=== PATIENT | male | born 1940 | race Hispanic/Latino ===

== ENCOUNTER 2020-06-26 07:47 | Observation (INO) | payer OTHER ==
[2020-06-24 12:44] LABS: BASOPHILS % (AUTO) 1.1 % (0.0-5.0); EOSINOPHILS % (AUTO) 3.4 % (0.0-8.0); HEMATOCRIT 41.8 % (42-54); LYMPHOCYTES % (AUTO) 31.2 % (21.0-51.0); MEAN CORPUSCULAR HEMOGLOBIN 31.1 pg (27.0-33.0); MEAN CORPUSCULAR HGB CONC 33.7 g/dL (32.0-36.0); MEAN CORPUSCULAR VOLUME 92.1 fL (79-99); MONOCYTES % (AUTO) 7.5 % (3.0-13.0); NEUTROPHILS % (AUTO) 56.5 % (40.0-77.0); PLATELET COUNT (AUTO) 188 K/uL (130-400); RED BLOOD CELL COUNT(AUTO) 4.54 MIL/uL (4.50-6.20); RED CELL DISTRIBUTION WIDTH 12.9 % (11.0-15.5); WHITE BLOOD COUNT (AUTO) 7.6 K/uL (4.8-10.8)
[2020-06-24 12:45] LABS: APPEARANCE,URINE SL CLOUDY (CLEAR); BILIRUBIN,URINE NEGATIVE (NEGATIVE); COLOR,URINE YELLOW (YELLOW); GLUCOSE, URINE (UA) NEGATIVE (NEGATIVE); KETONES,URINE NEGATIVE (NEGATIVE); LEUKOCYTE ESTERASE ,URINE SMALL (NEGATIVE); NITRATE,URINE POSITIVE (NEGATIVE); OCCULT BLOOD,URINE TRACE-INTACT (NEGATIVE); PROTEIN,URINE 30 mg/dL (NEGATIVE); UROBILINOGEN,URINE 0.2 mg/dL (0.2-1.0)
[2020-06-24 12:53] LABS: POTASSIUM 4.5 mmol/L (3.5-5.1)
[2020-06-24 12:55] LABS: INR 1.1 (0.85-1.15); PROTHROMBIN TIME 11.9 SEC (9.6-11.6)
[2020-06-24 12:57] LABS: PARTIAL THROMBOPLASTIN TIME 26.3 SEC (26.3-35.5)
[2020-06-24 13:15] LABS: RBC,URINE 0-1 /HPF (0-1)
[2020-06-24 13:16] LABS: BACTERIA,URINE Moderate /HPF (None Seen); SQUAMOUS EPITHELIAL CELL,UR 0-2 /HPF (0-2); WBC,URINE 26-50 /HPF (0-1)
[2020-06-25 16:26] VITALS: BP 114/61
[2020-06-26] VITALS (9 sets, daily range): BP systolic 108–143; BP diastolic 52–84
[~2020-06-26] VITALS: Ht 170.2 cm; Wt 82.3 kg
[~2020-06-26 07:47] MED LIST: AMLO-257 PO; ASPI-1197 PO; ATOR40TA69 PO; CARV25TA PO; ISOS20TA85 PO; LISI40TA9 PO; MULT-1203 PO; SODIUM CHLORIDE 0.9% 500ML 500 ML IV SCH; TAMS-1 PO
[2020-06-26] MEDS ORDERED: SODIUM CHLORIDE 0.9% 1000ML 1,000 ML IV ONE (08:38)
[2020-06-26] MEDS ORDERED: IOHEXOL-350 50ML VIAL IV ONE (15:53)
[2020-06-26] MEDS ORDERED: IOHEXOL-350 75 ML VIAL IV ONE (15:53)
[2020-06-26] MEDS ORDERED: IOHEXOL 350 MG/ML 100ML INFUS..BTL IV ONE (15:53)
[2020-06-26] MEDS ORDERED: BIVALIRUDIN 250 MG/VIAL IV ONE (15:53)
[2020-06-26] MEDS ORDERED: HEPARIN SODIUM 1000UNIT/ML 10ML VIAL ONE (15:53)
[2020-06-26] MEDS ORDERED: NITROGLYCERIN 2 MG/VIAL VIAL IV ONE (15:53)
[2020-06-26] MEDS ORDERED: LIDOCAINE HCL 2% 20ML ONE (15:54)
[2020-06-26] MEDS ORDERED: CLOPIDOGREL BISULFATE 300 MG TAB ONE (17:47)
[2020-06-26] MEDS ORDERED: LABETALOL 20 MG/4 ML DISP.SYRIN IV ONE (18:11)
[2020-06-26] MEDS ORDERED: FENTANYL CITRATE PF 50 MCG/1 ML 2ML VIAL ONE (18:13)
[2020-06-26] MEDS ORDERED: SODIUM CHLORIDE 0.9% 1000ML 1,000 ML IV SCH (18:30)
[2020-06-26] MEDS ORDERED: ONDANSETRON HCL 4 MG/2 ML VIAL IVP PRN (18:30)
[2020-06-26] MEDS ORDERED: ATORVASTATIN CALCIUM 40 MG TABLET PO SCH (21:00)
[2020-06-26] MEDS: CARVEDILOL 25 MG TABLET PO SCH (21:42)
[2020-06-27 04:02] VITALS: BP 137/75
[2020-06-27 04:58] LABS: MEAN CORPUSCULAR HEMOGLOBIN 30.9 pg (27.0-33.0); MEAN CORPUSCULAR HGB CONC 34.4 g/dL (32.0-36.0); MEAN CORPUSCULAR VOLUME 90.1 fL (79-99); RED BLOOD CELL COUNT(AUTO) 4.33 MIL/uL (4.50-6.20); RED CELL DISTRIBUTION WIDTH 12.6 % (11.0-15.5); WHITE BLOOD COUNT (AUTO) 7.6 K/uL (4.8-10.8)
[2020-06-27 05:14] LABS: CREATININE 0.9 mg/dL (0.5-1.5); POTASSIUM 3.5 mmol/L (3.5-5.1)
[2020-06-27 08:00] VITALS: BP 143/73
[2020-06-27] MEDS ORDERED: CLOP75TA14 PO (08:37)
[2020-06-27] MEDS ORDERED: TAMSULOSIN HCL 0.4 MG CAP.ER.24H PO SCH (09:00)
[2020-06-27] MEDS ORDERED: LISINOPRIL 40 MG TABLET PO SCH (09:00)
[2020-06-27] MEDS ORDERED: AMLODIPINE BESYLATE 5 MG TAB PO SCH (09:00)
[2020-06-27] MEDS ORDERED: CLOPIDOGREL BISULFATE 75 MG TAB PO SCH (09:00)
[2020-06-27] MEDS ORDERED: ASPIRIN 81MG TAB.CHEW PO SCH (09:00)
[2020-06-27] MEDS ORDERED: NON-FORMULARY MEDICATION 1 EACH (Multivitamin (Multi Vitamin Daily) 1 EACH) PO SCH (09:00)
[2020-06-27] MEDS ORDERED: ISOSORBIDE MONONITRATE 20 MG TABLET PO SCH (09:00)
[2020-06-27] MEDS ORDERED: MULTIVITAMIN TABLET PO SCH (09:00)
[2020-06-27] MEDS ORDERED: NITR100C4 PO (09:25)
[2020-06-27] MEDS: CARVEDILOL 25 MG TABLET PO SCH (09:28)
[2020-06-27 11:43] VITALS: BP 108/55
== END 2020-06-27 13:50 | disposition home or self-care (01) ==
LOC: DAH 07:47 → DAHIP 18:21 → DAH 18:21 → 4CH 19:17
PROVIDERS: ADMIT Internal Medicine Cardiovascular Disease; ATTEND Internal Medicine Cardiovascular Disease
DX: I25.5 Ischemic cardiomyopathy (principal); R94.39 Abnormal result of other cardiovascular function study; I25.119 Atherosclerotic heart disease of native coronary artery with unspecified angina pectoris; I10 Essential (primary) hypertension; N39.0 Urinary tract infection, site not specified; B96.20 Unspecified Escherichia coli [E. coli] as the cause of diseases classified elsewhere; E78.5 Hyperlipidemia, unspecified; N40.0 Benign prostatic hyperplasia without lower urinary tract symptoms; Z87.440 Personal history of urinary (tract) infections; Z95.5 Presence of coronary angioplasty implant and graft; Z16.23 Resistance to quinolones and fluoroquinolones; Z79.82 Long term (current) use of aspirin; Z79.02 Long term (current) use of antithrombotics/antiplatelets; Z79.899 Other long term (current) drug therapy
CPT/HCPCS: 36415 ×2; 71045; 80048 ×2; 80061; 81001; 85025; 85027; 85610; 85730; 87077; 87088; 87186; 93005; 93459; 96360; 96361 ×2; A4215; A4216; A4221; A4222; A4223 ×3; A4606; A4663; C1760; C1874; C1884; C1887; C1894 ×2; C9604; G0378 ×20; J0583; J1644; J3010; J3490 ×2; J7030; Q9965; Q9967 ×3

== ENCOUNTER 2020-06-29 11:24 | Inpatient (IN) | payer OTHER ==
[~2020-06-29] VITALS: Ht 170.2 cm; Wt 82.1 kg
[~2020-06-29 11:24] MED LIST changes: +CLOP75TA14 PO; +NITR100C4 PO; -SODIUM CHLORIDE 0.9% 500ML 500 ML IV SCH
[2020-06-29 11:56] LABS: BASOPHILS % (AUTO) 0.7 % (0.0-5.0); EOSINOPHILS % (AUTO) 2.6 % (0.0-8.0); HEMATOCRIT 39.7 % (42-54); LYMPHOCYTES % (AUTO) 26.6 % (21.0-51.0); MEAN CORPUSCULAR HGB CONC 34.3 g/dL (32.0-36.0); MEAN CORPUSCULAR VOLUME 90.4 fL (79-99); MONOCYTES % (AUTO) 10.7 % (3.0-13.0); NEUTROPHILS % (AUTO) 59.2 % (40.0-77.0); PLATELET COUNT (AUTO) 174 K/uL (130-400); RED BLOOD CELL COUNT(AUTO) 4.39 MIL/uL (4.50-6.20); RED CELL DISTRIBUTION WIDTH 12.9 % (11.0-15.5); WHITE BLOOD COUNT (AUTO) 6.1 K/uL (4.8-10.8)
[2020-06-29 12:05] LABS: INR 1.08 (0.85-1.15); PROTHROMBIN TIME 11.7 SEC (9.6-11.6)
[2020-06-29 12:06] LABS: CREATININE 1.1 mg/dL (0.5-1.5); PARTIAL THROMBOPLASTIN TIME 25.3 SEC (26.3-35.5); POTASSIUM 3.8 mmol/L (3.5-5.1)
[2020-06-29 12:10] LABS: ALBUMIN 3.8 g/dL (3.5-5.0); BILIRUBIN,TOTAL 0.8 mg/dL (0.2-1.0); TOTAL PROTEIN, SERUM 7.9 g/dL (6.0-8.3)
[2020-06-29] MEDS ORDERED: ASPIRIN 325 MG TABLET ONE (12:37)
[2020-06-29] MEDS ORDERED: ONDANSETRON HCL 4 MG/2 ML VIAL IV PRN (13:15)
[2020-06-29] MEDS: CEFTRIAXONE SODIUM 1 GM IV SCH (13:15)
[2020-06-29] MEDS ORDERED: ACETAMINOPHEN 325 MG TAB PO PRN ×2 (13:15)
[2020-06-29 13:25] LABS: APPEARANCE,URINE Cloudy (CLEAR); BILIRUBIN,URINE Small (NEGATIVE); COLOR,URINE Dark Yellow (YELLOW); GLUCOSE, URINE (UA) Negative (NEGATIVE); KETONES,URINE 15 mg/dL (NEGATIVE); LEUKOCYTE ESTERASE ,URINE Moderate (NEGATIVE); NITRATE,URINE Negative (NEGATIVE); OCCULT BLOOD,URINE Negative (NEGATIVE); PH,URINE 5.5 (5.0-8.0); PROTEIN,URINE POS 1+ mg/dL (NEGATIVE)
[2020-06-29 13:45] LABS: BACTERIA,URINE Few /HPF (None Seen); SQUAMOUS EPITHELIAL CELL,UR Few /HPF (0-2)
[2020-06-29 13:47] LABS: CALCIUM OXALATE CRYSTALS,UR Moderate /LPF (None Seen)
[2020-06-29 13:48] LABS: MUCUS,URINE Few LPF (None Seen); WBC,URINE 26-50 /HPF (0-1)
[2020-06-29] MEDS ORDERED: CEFTRIAXONE SODIUM 1 GM ONE (14:08)
[2020-06-29 19:00] VITALS: BP 117/52
[2020-06-29 20:25] VITALS: BP_SYST 109; BP_SYST 119; BP_DIAS 54; BP_DIAS 60
[2020-06-29 20:26] VITALS: BP 127/65
[2020-06-29] MEDS: ATORVASTATIN CALCIUM 10 MG TABLET PO SCH (21:14)
[2020-06-29] MEDS: FAMOTIDINE/PF 20 MG/2 ML VIAL IV SCH (21:15)
[2020-06-29] MEDS: CARVEDILOL 12.5 MG TABLET PO SCH (21:15)
[2020-06-29 23:51] VITALS: BP_SYST 113; BP_SYST 95; BP_DIAS 55; BP_DIAS 58
[2020-06-29 23:52] VITALS: BP 102/55
[2020-06-30] VITALS (7 sets, daily range): BP systolic 83–171; BP diastolic 43–70
[2020-06-30 05:52] LABS: BASOPHILS % (AUTO) 0.9 % (0.0-5.0); EOSINOPHILS % (AUTO) 5.2 % (0.0-8.0); LYMPHOCYTES % (AUTO) 31.6 % (21.0-51.0); MEAN CORPUSCULAR HEMOGLOBIN 30.2 pg (27.0-33.0); MEAN CORPUSCULAR HGB CONC 32.6 g/dL (32.0-36.0); MEAN CORPUSCULAR VOLUME 92.5 fL (79-99); MONOCYTES % (AUTO) 13.7 % (3.0-13.0); NEUTROPHILS % (AUTO) 48.4 % (40.0-77.0); PLATELET COUNT (AUTO) 158 K/uL (130-400); RED BLOOD CELL COUNT(AUTO) 4.11 MIL/uL (4.50-6.20); RED CELL DISTRIBUTION WIDTH 12.9 % (11.0-15.5); WHITE BLOOD COUNT (AUTO) 5.6 K/uL (4.8-10.8)
[2020-06-30 06:04] LABS: ALBUMIN 3.1 g/dL (3.5-5.0); BILIRUBIN,TOTAL 0.7 mg/dL (0.2-1.0); CREATININE 0.9 mg/dL (0.5-1.5); POTASSIUM 3.8 mmol/L (3.5-5.1)
[2020-06-30] MEDS ORDERED: AMLODIPINE BESYLATE 5 MG TAB PO SCH (09:00)
[2020-06-30 09:02] LABS: CREATINE KINASE, TOTAL 128 U/L (21-232); MYOGLOBIN 50 ng/mL (10-92); TROPONIN I < 0.04 ng/mL (0.00-0.06)
[2020-06-30] MEDS: MULTIVITAMIN TABLET PO SCH (09:03)
[2020-06-30] MEDS: ASPIRIN 81MG TAB.CHEW PO SCH (09:04)
[2020-06-30] MEDS: ISOSORBIDE MONO 60 MG TAB.SR PO SCH (09:04)
[2020-06-30] MEDS: CLOPIDOGREL BISULFATE 75 MG TAB PO SCH (09:04)
[2020-06-30] MEDS: CARVEDILOL 12.5 MG TABLET PO SCH ×2 (09:05→21:33)
[2020-06-30] MEDS: FAMOTIDINE/PF 20 MG/2 ML VIAL IV SCH ×2 (09:06→21:34)
[2020-06-30] MEDS: LISINOPRIL 40 MG TABLET PO SCH (09:06)
[2020-06-30] MEDS ORDERED: SODIUM CHLORIDE 0.9% 500ML 500 ML IV PRN (12:30)
[2020-06-30] MEDS ORDERED: SODIUM CHLORIDE 0.9% 500ML 500 ML IV ONE (13:00)
[2020-06-30] MEDS: CEFTRIAXONE SODIUM 1 GM IV SCH (13:10)
[2020-06-30] MEDS: TAMSULOSIN HCL 0.4 MG CAP.ER.24H PO SCH (17:45)
[2020-06-30] MEDS: ATORVASTATIN CALCIUM 10 MG TABLET PO SCH (21:33)
[2020-07-01 00:07] VITALS: BP 114/60
[2020-07-01 04:10] VITALS: BP 141/70
[2020-07-01 07:00] VITALS: BP_SYST 123; BP_SYST 131; BP_SYST 134; BP_DIAS 56; BP_DIAS 61; BP_DIAS 63
[2020-07-01] MEDS: CARVEDILOL 12.5 MG TABLET PO SCH (08:37)
[2020-07-01] MEDS: LISINOPRIL 40 MG TABLET PO SCH (08:37)
[2020-07-01] MEDS: MULTIVITAMIN TABLET PO SCH (08:38)
[2020-07-01] MEDS: ISOSORBIDE MONO 60 MG TAB.SR PO SCH (08:38)
[2020-07-01] MEDS: TAMSULOSIN HCL 0.4 MG CAP.ER.24H PO SCH (08:38)
[2020-07-01] MEDS: CLOPIDOGREL BISULFATE 75 MG TAB PO SCH (08:38)
[2020-07-01] MEDS: ASPIRIN 81MG TAB.CHEW PO SCH (08:38)
[2020-07-01] MEDS: FAMOTIDINE/PF 20 MG/2 ML VIAL IV SCH (08:38)
[2020-07-01 11:30] VITALS: BP_SYST 103; BP_SYST 107; BP_SYST 97; BP_DIAS 48; BP_DIAS 55
== END 2020-07-01 12:25 | disposition home or self-care (01) | DRG 303 ==
LOC: EDH 11:24 → EDHIP 13:09 → 3CH 18:44
PROVIDERS: ADMIT Internal Medicine; ATTEND Internal Medicine
DX: I25.119 Atherosclerotic heart disease of native coronary artery with unspecified angina pectoris (principal); N39.0 Urinary tract infection, site not specified; Z16.23 Resistance to quinolones and fluoroquinolones; B96.20 Unspecified Escherichia coli [E. coli] as the cause of diseases classified elsewhere; I25.5 Ischemic cardiomyopathy; E78.5 Hyperlipidemia, unspecified
CPT/HCPCS: 36415; 71045; 80048; 80053; 80061; 81001; 82550; 83874; 84145; 84484; 85025; 85027; 85610; 85730; 87077; 87088; 87186; 93005; 93459; 96360; 96361; A4606; C1760; C1884; C1894; C9604; G0378; J0583; J0696; J1644; J3010; J3490; J7030; J7040; Q9967

== ENCOUNTER → 2022-08-11 | Outpatient (CLI) | payer OTHER ==
[~2022-08-11] MED LIST changes: -AMLO-257 PO; +CLOP-31 PO; -CLOP75TA14 PO
[2022-08-11 12:41] LABS: CREATININE 0.9 mg/dL (0.5-1.5); MAGNESIUM 2.1 mg/dL (1.80-2.40); POTASSIUM 4.3 mmol/L (3.5-5.1)
== END | disposition home or self-care (01) ==
LOC: LAB 10:29
PROVIDERS: ATTEND Internal Medicine Cardiovascular Disease
DX: I50.22 Chronic systolic (congestive) heart failure (principal)
CPT/HCPCS: 36415; 80048; 83735; 83880